=== PATIENT | male | born 1980 | race Caucasian/White ===

== ENCOUNTER 2020-08-20 16:01 | Emergency (ER) | payer OTHER, SELFPAY ==
[2020-08-20 16:09] VITALS: BP 122/75; PULSE 70; RESP 16; TEMP 36; O2SAT 100
--- NOTE | 2020-08-20 16:23 | DI.RAD.S_ITS ---
PROCEDURE: XR HAND RT MIN 3V INDICATIONS: open wound TECHNIQUE: 3 views of the hand(s) acquired. COMPARISON: None. FINDINGS: Bones: No fractures or dislocations. Carpal bones are normally aligned. No suspicious bony lesions. Soft tissues: Generalized soft tissue swelling is seen. No radiopaque foreign bodies are seen. IMPRESSION: Soft tissue swelling, without a radiopaque foreign body identified. No focal bony abnormality is detected on these plain films. Dictated by: Mickey Avila M.D. on 08/20/2020 at 15:47 Approved by: Mickey Avila M.D. on 08/20/2020 at 15:47
[2020-08-20] MEDS: TET,DIPH,PERTUSS(ACELL),VAC/PF 0.5 ML SYRINGE IM (18:46)
[2020-08-20] MEDS: BUPIVACAINE 0.5% (PF) VIAL 5 ML SUBCUT (18:46)
--- NOTE | 2020-08-20 19:13 | ED_ITS ---
HPI - Extremity Injury (Upper) General Chief Complaint: Extremity Injury, Upper Stated Complaint: Cut Right Knuckle, Passed Out At [facility] Time Seen by Provider: 08/20/20 18:05 Source: patient Mode of arrival: Wheelchair Limitations: no limitations History of Present Illness HPI narrative: 39-year-old male nonsmoker with noncontributory medical history presents with the chief complaint of a work related accidental injury to his right hand. He was using a chop saw while working on a project and suffered a deep laceration on the dorsum of his right (dominant) hand. He has pain and bleeding and describes an inability to fully move his index finger due to weakness, not pain. His tetanus is out-of-date will need to be updated. He denies any other injury and is otherwise well and free of complaint. He denies any exposure to persons known to have COVID MD complaint: injury to: right Onset (ago): hour(s) Other Extremity Injury: Right: hand Other injuries: none Handedness: right Place: work Severity: moderate Exacerbating factors: movement of extremity Context: laceration Associated symptoms: denies other symptoms Related Data Previous Rx's Medication Instructions Recorded nystatin 1 matt TOPICAL TID #15 gm 12/24/16 cephalexin [Keflex] 500 mg PO QID 7 Days #28 cap 08/20/20 Allergies Allergy/AdvReac Type Severity Reaction Status Date / Time No Known Allergies Allergy Uncoded 08/20/20 19:59 Review of Systems Constitutional Constitutional: Denies chills, Denies fatigue, Denies fever(s), Denies frequent falls, Denies lethargy and Denies weakness Eyes Eyes: Denies change in vision, Denies eye discharge, Denies irritation and Denies loss of vision ENT Ears, Nose, Mouth, and Throat: Denies change in voice, Denies dizziness, Denies neck pain, Denies sore throat and Denies throat swelling Cardiovascular Cardiovascular: Denies chest pain, Denies irregular heart rhythm, Denies lightheadedness, Denies palpitations, Denies dyspnea, Denies dyspnea on exertion and Denies orthopnea Respiratory Respiratory: Denies cough, Denies dyspnea, Denies dyspnea on exertion and Denies wheezing Gastrointestinal Gastrointestinal: Denies abdominal pain, Denies change in bowel habits, Denies diarrhea, Denies nausea and Denies vomiting Musculoskeletal Musculoskeletal: Reports limited range of motion, Denies neck pain and Denies numbness Integumentary/Breasts Skin/Breast: Denies pruritus, Denies erythema, Denies rash and Reports wounds Neurologic Neurologic: Denies behavioral changes, Denies confusion, Denies dizziness, Denies frequent falls, Denies loss of vision, Denies numbness and Denies weakness Psychiatric Psychiatric: Denies anxiety, Denies behavioral changes, Denies confusion, Denies depression, Denies homicidal ideation and Denies suicidal ideation Endocrine Endocrine: Denies fatigue, Denies flushing and Denies palpitations Hematologic/Lymphatic Hematologic/Lymphatic: Denies easy bruising Allergic/Immunologic Allergic/Immunologic: Denies urticaria, Denies throat swelling and Denies wheezing Patient History alcohol intake frequency: 0-2 drinks per day Substance Use Type: does not use Exam Narrative Exam Narrative: GEN: AOx3 and in mild distress EYES: Pupils are equal, round, and reactive to light and accommodation. Extraoccular muscles are intact bilaterally. There is no subconjunctival hemorrhage or exudate. CHEST: Lungs are clear to auscultation bilaterally and free of wheezes, rales, or rhonchi. Heart rate is regular rhythm, there are no murmurs, clicks, rubs, or gallops. There is no chest wall tenderness. ABD: Abdomen is soft and nontender. There is no guarding or rebound. Bowel sounds are normal in all 4 quadrants. There is no mass or organomegaly. EXT: Right index finger with 5 cm jagged, irregular and deep laceration on the dorsal surface overlying the MCP. Sensation intact, no foreign body noted. When visualized in a bloodless field there is clear involvement of extensor tendon with suspected joint capsule involvement. Full painless ROM of all extremities with no loss of sensation or strength. SKIN: Warm, pink, and dry. No erythema or rash Initial Vital Signs Initial Vital Signs: Vital Signs Temperature 96.8 F L 08/20/20 16:09 Pulse Rate 70 08/20/20 16:09 Respiratory Rate 16 08/20/20 16:09 Blood Pressure 122/75 08/20/20 16:09 Pulse Oximetry 100 08/20/20 16:09 Procedures Laceration Repair Laceration 1: Site: hand Side (If applicable): right Size (cm): 5 Description: irregular Depth: involves muscle layer and involves tendon Local Anesthetic: lidocaine 1% and with bicarb Amount of anesthesia used (mL): 6 Pre-repair: wound explored and irrigated extensively Skin layer closed with: nylon Size (cm): 4-0 Number of sutures: 5 Technique: simple, interrupted Orthopedic Splinting/Casting Injury #1: Side: right Upper Extremity Injury Location: hand Upper Extremity Immobilizer: volar splint (intrinsic plus per Dr. Cunningham) Post splinting neuro exam: intact Post splinting vascular exam: intact Placed by: Nursing Course Orders Ordered: ED Orders 08/20/20 16:23 XR hand RT min 3V Stat 08/20/20 19:35 COVID19 Stat Discontinued Medications Hydrocodone Bitart/Acetaminophen (Hydrocodone/Acet 5/325 Prepack) 1 bottle MISC SEEINSTR ONE Stop: 08/20/20 19:59 Last Admin: 08/20/20 20:04 Dose: 1 bottle Documented by: SHIRLEY Bupivacaine HCl (Bupivacaine 0.5% (Pf) Vial) 5 ml SUBCUT NOW ONE Stop: 08/20/20 18:20 Last Admin: 08/20/20 18:46 Dose: 5 ml Documented by: SHIRLEY Cefazolin Sodium (Cephalexin 250 Mg Prepack) 1 bottle MISC SEEINSTR ONE Stop: 08/20/20 19:59 Last Admin: 08/20/20 20:03 Dose: 250 mg Documented by: SHIRLEY Diphtheria/Tetanus/Acell Pertussis (Tet,Diph,Pertuss(Acell),Vac/Pf 0.5 Ml Syringe) 0.5 ml IM .ONCE ONE Stop: 08/20/20 18:20 Last Admin: 08/20/20 18:46 Dose: 0.5 ml Documented by: SHIRLEY Consultations Consultation #1: discussion with Dr. Cunningham. Recommends washout, loose closure, ABX, splint with MCP flexed at 90 and PIP straight. Will likely take to OR in next day or 2 and requests COVID swab Vital Signs Vital signs: Vital Signs - 8 hr 08/20/20 19:53 08/20/20 20:06 Pulse Rate 78 61 Respiratory Rate 16 16 Blood Pressure 120/68 131/64 Pulse Oximetry 100 100 MDM - Extremity Injury (Upper) Lab Data Labs: Lab Results 08/20/20 Range/Units 19:35 COVID-19 PCR Negative (Negative) Discharge Plan Departure Patient Disposition: Home Clinical Impression: Extensor tendon laceration of finger with open wound Instructions: DI for Laceration Repair -- Simple Activity Restrictions/Additional Instructions: *You have been diagnosed with [deep hand laceration with involvement of the extensor tendon under index finger, and likely the joint capsule. X-rays would suggest there was no bone involvement.] *What to do: *Take medications as directed: Antibiotics were sent to [facility] in [place] at your request * call [facility] tomorrow morning and let them know that Dr. Tariq spoke with Dr. Cunningham and he wants to see you soon, and will likely need surgery. *Return to ER if you should have any new, worsening or concerning symptoms, such as [ worsening pain, bleeding, numbness, or other bothersome symptoms Splint Care: Keep splint clean and dry. Elevated affected body part to decrease swelling. OK to use ice pack on the affected body part. Use for 15-20 minutes each time, for 5-6x per day. If you develop worsening pain, numbness, tingling, discoloration of the affected body part, loosen the splint by loosening the NUZHAT wrap, and either see your doctor for an urgent re-assessment, or return to the Emergency Department. Return to the Emergency Department for any new or worsening symptoms. ] Prescriptions: New cephalexin [Keflex] 500 mg capsule 500 mg PO QID 7 Days Qty: 28 RF: 0 No Action nystatin 15 GM ointment 1 matt Topical TID Qty: 15 RF: 1
--- NOTE | 2020-08-20 19:47 | PC.NURSE ---
LAC repaired by Dr Tariq. R intrinsic plus splint applied and placement of splint verified by Dr Tariq. Pt tolerated well. Tetanus updated. Plan is for surgery in the next 72 hours. COVID swabbed for surgery. Awaiting further instructions on discharge.
[2020-08-20 19:53] VITALS: BP 120/68; PULSE 78; RESP 16; O2SAT 100
[2020-08-20 19:54] LABS: COVID19 -Nasal RAPID Negative (Negative)
[2020-08-20] MEDS: cephALEXin 250 MG PREPACK 1 BOTTLE MISC (20:03)
[2020-08-20] MEDS: HYDROCODONE/ACET 5/325 PREPACK 1 BOTTLE MISC (20:04)
[2020-08-20 20:06] VITALS: BP 131/64; PULSE 61; RESP 16; O2SAT 100
== END 2020-08-20 20:15 | disposition home or self-care (01) ==
PROVIDERS: Emergency Provider Emergency Medicine
DX: S56.429A Laceration of extensor muscle, fascia and tendon of unspecified finger at forearm level, initial encounter (principal); W29.3XXA Contact with powered garden and outdoor hand tools and machinery, initial encounter; Z23 Encounter for immunization; Y99.0 Civilian activity done for income or pay
CPT/HCPCS: 13132; 29125; 73130; 87635; 90471; 99283; STOP; 90715

== ENCOUNTER → 2023-05-05 15:54 | Outpatient (CLI) | payer OTHER, SELFPAY ==
--- NOTE | 2023-05-05 15:59 | DI.RAD.S_ITS ---
PROCEDURE: XR LUMBAR SPINE 2-3V INDICATIONS: L I tender/pain L3/4/5 hx degenerative disc, injury wk+ [employer] TECHNIQUE: 3 views of the lumbar spine were acquired. COMPARISON: [facility], , L-SPINE 2-3 VIEWS, 11/30/2007, 15:44. FINDINGS: Bones: 5 [id number] vertebrae are present. Straightening normal lumbar lordosis. No vertebral body compression fractures. No suspicious bony lesions. Mild degenerative disc disease at L3-L4 with osteophytosis and mild disc height loss. Mild facet arthropathy of the lower lumbar spine. Soft tissues: Overlying bowel gas pattern is normal. No suspicious soft tissue calcifications. IMPRESSION: Straightening of normal lumbar lordosis. Mild degenerative changes of the lumbar spine. No vertebral body compression deformities. Dictated by: Rocky Maurer M.D. on 05/05/2023 at 17:05 Approved by: Rocky Maurer M.D. on 05/05/2023 at 17:07
== END ==
PROVIDERS: Referring Provider Student in an Organized Health Care Education/Training Program; Visit Provider Student in an Organized Health Care Education/Training Program
DX: M54.50 Low back pain, unspecified (principal); Y99.0 Civilian activity done for income or pay; M47.816 Spondylosis without myelopathy or radiculopathy, lumbar region
CPT/HCPCS: 72100